=== PATIENT | female | born 1965 | race Caucasian/White ===

== ENCOUNTER 2016-11-02 11:36 | Emergency (ER) | payer BC ==
[2016-11-02 12:02] VITALS: BP 136/94
--- NOTE | 2016-11-02 13:01 | UC ---
Throat Pain/Nasal Raciel HPI - HPI Summary HPI Summary: Patient has had increased sinus pressure and sore throat for the past 10 days on and off feevers and chills - History of Current Complaint Chief Complaint: UCRespiratory Stated Complaint: RESPIRATORY Time Seen by Provider: 11/02/16 12:42 Hx Obtained From: Patient Hx Last Menstrual Period: 02/2012 ?: No Onset/Duration: Sudden Onset Severity: Moderate Cough: Nonproductive Associated Signs & Symptoms: Positive: Dysphagia, Sinus Discomfort, Nasal Discharge - Allergies/Home Medications Allergies/Adverse Reactions: Allergies Allergy/AdvReac Type Severity Reaction Status Date / Time Avoids NSAIDS Allergy ulcer hx Uncoded 11/02/16 11:49 Home Medications: Home Medications Lactobacillus [Probiotic] 1 cap PO DAILY 11/02/16 [History Confirmed 11/02/16] Pseudoephedrine TAB* [Sudafed TAB*] 30 mg PO Q4H PRN 11/02/16 [History Confirmed 11/02/16] guaiFENesin ER TAB [Mucinex*] 600 mg PO BID PRN 11/02/16 [History Confirmed ] PMH/Surg Hx/FS Hx/Imm Hx Previously Healthy: Yes - Surgical History Surgical History: Yes Surgery Procedure, Year, and Place: 2011 UTERINE ABLATION @ [facility]; 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 TUMOR WAS BENIGN. DX WITH 3 BULGING DISCS AT L-SP RESULTING LFROM MRI 02/2012 @ [facility]. NO SX AT THIS TIME. - Social History Alcohol Use: Occasionally Substance Use Type: None Smoking Status (MU): Former Smoker When Did the Patient Quit Smoking/Using Tobacco: 2010 Review of Systems Constitutional: Chills, Fatigue Skin: Negative Eyes: Negative ENT: Sore Throat, Ear Ache, Sinus Congestion, Sinus Pain/Tenderness Respiratory: Cough Cardiovascular: Negative Gastrointestinal: Negative Genitourinary: Negative Motor: Negative Neurovascular: Negative Musculoskeletal: Negative Neurological: Negative Psychological: Negative All Other Systems Reviewed And Are Negative: Yes Physical Exam Triage Information Reviewed: Yes Appearance: Well-Appearing, Well-Nourished, Pain Distress Vital Signs: Initial Vital Signs Temp 97.6 F 11/02/16 11:53 Pulse 59 11/02/16 11:53 Resp 18 11/02/16 11:53 BP 136/94 11/02/16 11:53 Pulse Ox 99 08/27/17 11:53 Vital Signs Reviewed: Yes Eye Exam: Normal ENT: Positive: Hearing grossly normal, Pharyngeal erythema, TMs normal, Tonsillar swelling, Tonsillar exudate Dental Exam: Normal Neck: Positive: Supple, Nontender, No Lymphadenopathy Respiratory Exam: Normal Respiratory: Positive: Chest non-tender, Lungs clear, Normal breath sounds Cardiovascular Exam: Normal Cardiovascular: Positive: RRR, No Murmur, Pulses Normal Abdominal Exam: Normal Abdomen Description: Positive: Nontender, No Organomegaly, Soft Bowel Sounds: Positive: Present Musculoskeletal Exam: Normal Musculoskeletal: Positive: Strength Intact, ROM Intact, No Edema Neurological Exam: Normal Psychological Exam: Normal Skin Exam: Normal Throat Pain/Nasal Course/Dx - Course Course Of Treatment: hx obtained, exam performed ,meds reviewed, treated for sinusitis - Differential Dx/Diagnosis Differential Diagnosis/HQI/PQRI: Pharyngitis, Sinusitis, Tonsillitis, URI Provider Diagnoses: sinusitis Discharge - Discharge Plan Condition: Stable Disposition: HOME Patient Education Materials: Sinusitis (ED) Additional Instructions: 1. take the medication as prescribed. 2. Increase fluid intake 3. Ibuprofen or tylenol for pain or fever.
== END 2016-11-02 13:09 | disposition home or self-care (01) ==
LOC: UCCORT 11:36
DX: J32.9 Chronic sinusitis, unspecified (principal)
CPT/HCPCS: 99202; G0463